=== PATIENT | male | born 1985 | race Caucasian/White ===

== ENCOUNTER 2020-08-31 23:53 | Emergency (ER) | payer MEDICAID, OTHER ==
[~2020-08-31] VITALS: Ht 182.9 cm; Wt 70.3 kg
--- NOTE | 2020-09-01 | NUR ---
MD Mcwilliams in room to do MSE.
[2020-09-01] MEDS ORDERED: DOXY100C2 PO (00:05)
[2020-09-01] MEDS ORDERED: CEFTRIAXONE 500 MG VIAL ONE (00:14)
[2020-09-01] MEDS ORDERED: LIDOCAINE HCL 1% 20 ML VIAL ONE (00:14)
[2020-09-01] MEDS ORDERED: CEFTRIAXONE 500 MG VIAL IM ONE (00:15)
[2020-09-01 00:25] VITALS: BP 110/62
--- NOTE | 2020-09-01 00:25 | NUR ---
Patient discharged to home in stable condition. Written and verbal after care instructions given. Patient verbalizes understanding of instructions. Stressed follow up or return to ER for worsening s/s. Patient ambulates with steady gait, V/S stable, received paper Rx, left with all personal belongings.
== END 2020-09-01 00:25 | disposition home or self-care (01) ==
LOC: ER 23:53
DX: R30.0 Dysuria (principal); R36.9 Urethral discharge, unspecified; Z20.6 Contact with and (suspected) exposure to human immunodeficiency virus [HIV]
CPT/HCPCS: 96372; 99283; J0696; J3490; A4663

== ENCOUNTER 2020-11-01 21:26 | Emergency (ER) | payer OTHER ==
[~2020-11-01] VITALS: Ht 185.4 cm; Wt 70.3 kg
[~2020-11-01 21:26] MED LIST: DOXY100C2 PO
[2020-11-01] MEDS ORDERED: DOXY-326 PO (21:54)
[2020-11-01] MEDS ORDERED: CEFTRIAXONE 500 MG VIAL IM ONE (22:00)
[2020-11-01] MEDS ORDERED: DOXYCYCLINE HYCLATE 100 MG TABLET PO ONE (22:00)
[2020-11-01] MEDS ORDERED: LIDOCAINE HCL 1% 20 ML VIAL ONE (22:15)
[2020-11-01] MEDS ORDERED: CEFTRIAXONE 500 MG VIAL ONE (22:16)
[2020-11-01] MEDS ORDERED: DOXYCYCLINE HYCLATE 100 MG TABLET ONE (22:16)
[2020-11-01 22:30] VITALS: BP 125/72
--- NOTE | 2020-11-01 22:30 | NUR ---
Patient discharged to home in stable condition. Written and verbal after care instructions given. Patient verbalizes understanding of instructions. Stressed follow up or return to ER for worsening s/s.
[2020-11-01 22:37] LABS: *BILIRUBIN,URIN NEGATIVE (NEGATIVE); *BLOOD, URINE 1+ (NEGATIVE); *CLARITY,URINE CLEAR (CLEAR); *COLOR,URINE YELLOW (YELLOW); *KETONES,URINE NEGATIVE (NEGATIVE); *UROBILINOGEN,URINE 0.2 E.U./dl (NORMAL); LEUKOCYTE ESTERASE ,URINE NEGATIVE (NEGATIVE); NITRITE, URINE NEGATIVE (NEGATIVE); PH,URINE 5.5 (5.0-8.0); UGLUCOSE NEGATIVE (NEGATIVE)
[2020-11-01 22:47] LABS: BACTERIA,URINE NONE SEEN /HPF (NONE SEEN); CALCIUM OXALATE CRYSTALS,UR MODERATE /HPF (NONE SEEN); MUCUS,URINE MODERATE /LPF (0-FEW); SQUAMOUS EPITHELIAL CELL,UR NONE SEEN /HPF (NONE SEEN); WBC,URINE 0-3 /HPF (0-3)
[2020-11-05 15:16] LABS: *GC NAA Negative; *TRIC.VAG. NAA Negative
== END 2020-11-01 22:33 | disposition home or self-care (01) ==
LOC: ER 21:28
DX: N34.2 Other urethritis (principal)
CPT/HCPCS: 87086; 87491; A4663; J0696; J3490

== ENCOUNTER 2020-12-11 06:11 | Emergency (ER) | payer OTHER ==
[~2020-12-11] VITALS: Ht 182.9 cm; Wt 70.3 kg
[~2020-12-11 06:11] MED LIST changes: +DOXY-326 PO; -DOXY100C2 PO; +DOXY100C5 PO
--- NOTE | 2020-12-11 06:53 | NUR ---
Dr. Ellis at bedside for [facility]. Pt states he has had diarrhea and abdominal pain for past 3 days since he returned from the [place].
[2020-12-11] MEDS ORDERED: IV NORMAL SALINE 1000 ML BAG IV ONE (07:00)
[2020-12-11] MEDS ORDERED: KETOROLAC TROMETHAMINE 30 MG INJ IVP ONE (07:00)
[2020-12-11 07:18] LABS: HEMATOCRIT 41.8 % (36.7-47.1); MEAN CORPUSCULAR HEMOGLOBIN 33.1 uug (23.8-33.4); MEAN CORPUSCULAR VOLUME 97.3 fL (73.0-96.2); PLATELET COUNT (AUTO) 129 K/uL (152-348)
[2020-12-11 07:21] LABS: CREATININE 1.1 mg/dL (0.6-1.3); POTASSIUM 4.9 mmol/L (3.5-5.1)
[2020-12-11 07:27] LABS: BILIRUBIN,DIRECT 0.1 mg/dL (0.0-0.2); BILIRUBIN,TOTAL 0.2 mg/dL (0.2-1.0)
[2020-12-11] MEDS ORDERED: KETOROLAC TROMETHAMINE 30 MG INJ ONE (07:53)
[2020-12-11] MEDS ORDERED: IV NS 1000 ML 1,000 ML IV ONE (09:00)
[2020-12-11] MEDS ORDERED: CIPROFLOXACIN HCL 250 MG TABLET PO ONE (09:15)
[2020-12-11] MEDS ORDERED: CIPR-262 PO (09:16)
[2020-12-11 09:27] LABS: *BILIRUBIN,URIN NEGATIVE (NEGATIVE); *BLOOD, URINE 2+ (NEGATIVE); *CLARITY,URINE CLEAR (CLEAR); *COLOR,URINE YELLOW (YELLOW); *KETONES,URINE NEGATIVE (NEGATIVE); *UROBILINOGEN,URINE 0.2 E.U./dl (NORMAL); LEUKOCYTE ESTERASE ,URINE NEGATIVE (NEGATIVE); NITRITE, URINE NEGATIVE (NEGATIVE); PH,URINE 6.5 (5.0-8.0); UGLUCOSE NEGATIVE (NEGATIVE)
[2020-12-11] MEDS ORDERED: CIPROFLOXACIN HCL 250 MG TABLET ONE (09:33)
--- NOTE | 2020-12-11 10:04 | NUR ---
IV removed. Catheter intact and site benign. Pressure and 4x4 gauze applied to site. No bleeding noted.
[2020-12-11 14:33] LABS: BACTERIA,URINE NONE SEEN /HPF (NONE SEEN); SQUAMOUS EPITHELIAL CELL,UR FEW /HPF (NONE SEEN); URINE AMORPHOUS URATE FEW /HPF
== END 2020-12-11 10:09 | disposition home or self-care (01) ==
LOC: ER 06:14
DX: R10.9 Unspecified abdominal pain (principal); R19.7 Diarrhea, unspecified; D69.6 Thrombocytopenia, unspecified
CPT/HCPCS: 36415; 80048; 80076; 81001; 83690; 85025; 96361; 96374; 99284; J1885; A4663; J7030

== ENCOUNTER 2021-10-19 10:51 | Emergency (ER) | payer OTHER ==
[~2021-10-19] VITALS: Ht 185.4 cm; Wt 70.3 kg
[~2021-10-19 10:51] MED LIST changes: +CIPR-262 PO
[2021-10-19] MEDS ORDERED: LIDOCAINE 1%-EPI 1:100,000 20 ML VIAL IJ ONE (11:15)
[2021-10-19] MEDS ORDERED: CEFTRIAXONE 500 MG VIAL IM ONE (11:15)
[2021-10-19] MEDS ORDERED: DOXY100C5 PO (11:22)
[2021-10-19] MEDS ORDERED: CEFTRIAXONE 500 MG VIAL ONE (11:23)
[2021-10-19] MEDS ORDERED: LIDOCAINE 1%-EPI 1:100,000 20 ML VIAL ONE (11:24)
--- NOTE | 2021-10-19 12:06 | NUR ---
PT WAS EVALUATED BY DR PERALTA. PT WAS D/C'd TO HOME. D/C INSTRUCTIONS GIVEN TO THE PT BY DR KAISER.
[2021-10-19 12:07] VITALS: BP 132/75
[2021-10-20 10:06] LABS: HEPATITIS B SURFACE AG Negative (Negative)
[2021-10-22 20:06] LABS: *GC NAA Positive (Negative); *TRIC.VAG. NAA Negative (Negative)
== END 2021-10-19 12:08 | disposition home or self-care (01) ==
LOC: ER 10:53
DX: N34.2 Other urethritis (principal); Z20.2 Contact with and (suspected) exposure to infections with a predominantly sexual mode of transmission; D84.9 Immunodeficiency, unspecified; Z72.51 High risk heterosexual behavior
CPT/HCPCS: 99283; 86592; 96372; 86803; 87340; 87491; J0696; J3490; 36415; A4663

== ENCOUNTER 2021-12-05 09:40 | Emergency (ER) | payer OTHER ==
[~2021-12-05] VITALS: Ht 185.4 cm; Wt 70.3 kg
[2021-12-05] MEDS ORDERED: CEFTRIAXONE 500 MG VIAL IM ONE (11:00)
[2021-12-05] MEDS ORDERED: DOXYCYCLINE HYCLATE 100 MG TABLET PO ONE (11:00)
[2021-12-05] MEDS ORDERED: DOXYCYCLINE HYCLATE 100 MG TABLET ONE (11:01)
[2021-12-05] MEDS ORDERED: CEFTRIAXONE 500 MG VIAL ONE (11:02)
[2021-12-05] MEDS ORDERED: LIDOCAINE HCL 1% 20 ML VIAL ONE (11:02)
--- NOTE | 2021-12-05 11:40 | NUR ---
Female park aide accompanied patient for ( Dr Hargrove ).
[2021-12-05] MEDS ORDERED: DOXY-326 PO (11:52)
[2021-12-05] MEDS ORDERED: ACYC400T19 PO (11:52)
[2021-12-05 12:17] VITALS: BP 114/72
[2021-12-06 23:06] LABS: *GC NAA Negative (Negative)
[2021-12-07 03:06] LABS: *TRIC.VAG. NAA Negative (Negative)
== END 2021-12-05 12:17 | disposition home or self-care (01) ==
LOC: ER 09:40
DX: A60.1 Herpesviral infection of perianal skin and rectum (principal); K62.89 Other specified diseases of anus and rectum
CPT/HCPCS: 99283; 86780; 36415; 96372; 87491; J0696; J3490; A4663

== ENCOUNTER 2022-05-12 04:07 | Emergency (ER) | payer OTHER ==
[~2022-05-12] VITALS: Ht 185.4 cm; Wt 83.9 kg
[~2022-05-12 04:07] MED LIST changes: +ACYC400T19 PO
--- NOTE | 2022-05-12 04:20 | NUR ---
Seen and being examined by Dr. Madrigal
[2022-05-12] MEDS ORDERED: CEFAZOLIN 1 G VIAL IM ONE (04:30)
[2022-05-12] MEDS ORDERED: CEFAZOLIN 1 G VIAL ONE (04:30)
[2022-05-12] MEDS ORDERED: SULF1TAB48 PO (04:33)
[2022-05-12] MEDS ORDERED: HYDR-3972 PO (04:33)
[2022-05-12] MEDS ORDERED: AZIT250T13 PO (04:33)
[2022-05-12 04:40] VITALS: BP 112/80
== END 2022-05-12 04:46 | disposition home or self-care (01) ==
LOC: ER 04:08
DX: L03.317 Cellulitis of buttock (principal)
CPT/HCPCS: 99283; 96372; J0690; A4663

== ENCOUNTER 2022-06-18 09:36 | Emergency (ER) | payer OTHER ==
[~2022-06-18] VITALS: Ht 185.4 cm; Wt 74.8 kg
[~2022-06-18 09:36] MED LIST changes: +AZIT250T13 PO; +HYDR-3972 PO; +SULF1TAB48 PO
--- NOTE | 2022-06-18 09:50 | NUR ---
PT IS IN ROOM #2A. DR BLACKWOOD EVALUATED THE PT .
[2022-06-18] MEDS ORDERED: CEFTRIAXONE 500 MG VIAL IM ONE (10:00)
[2022-06-18] MEDS ORDERED: PENICILLIN G BENZATHINE 2.4 MMU/4 ML DISP.SYRIN IM ONE ×2 (10:00→10:16)
[2022-06-18] MEDS ORDERED: DOXY100C5 PO (10:05)
[2022-06-18] MEDS ORDERED: CEFTRIAXONE 500 MG VIAL ONE (10:16)
[2022-06-18] MEDS ORDERED: LIDOCAINE HCL 2% 20 ML VIAL ONE (10:17)
== END 2022-06-18 10:29 | disposition home or self-care (01) ==
LOC: ER 09:37
DX: A64 Unspecified sexually transmitted disease (principal)
CPT/HCPCS: 99284; 86592; 87591; 96372 ×2; J0561; J0696; J3490; A4663

== ENCOUNTER 2022-12-04 13:32 | Emergency (ER) | payer OTHER ==
[~2022-12-04] VITALS: Ht 185.4 cm; Wt 74.8 kg
[2022-12-04] MEDS ORDERED: CEFTRIAXONE 500 MG VIAL IM ONE (15:15)
[2022-12-04] MEDS ORDERED: LIDOCAINE HCL 1% 20 ML VIAL ONE (15:15)
[2022-12-04] MEDS ORDERED: CEFTRIAXONE 500 MG VIAL ONE (15:16)
[2022-12-04] MEDS ORDERED: DOXY100C5 PO (15:22)
[2022-12-04 15:28] VITALS: BP 111/63; O2SAT 96
== END 2022-12-04 15:29 | disposition home or self-care (01) ==
LOC: ER 13:35
DX: A64 Unspecified sexually transmitted disease (principal); Z79.2 Long term (current) use of antibiotics; Z79.899 Other long term (current) drug therapy
CPT/HCPCS: 99283; 96372; J0696; J3490; A4663

== ENCOUNTER 2024-06-29 09:19 | Emergency (ER) | payer OTHER ==
[2024-06-29] MEDS ORDERED: SULF1TAB48 PO (19:17)
[2024-06-29] MEDS ORDERED: ONDA4TAB11 PO (19:17)
[2024-06-29] MEDS ORDERED: HYDR-3980 PO (19:17)
[2024-06-29] MEDS ORDERED: CEPH500T PO (19:17)
== END 2024-06-29 09:58 | disposition left against medical advice (07) ==
LOC: ER 09:19
DX: R22.0 Localized swelling, mass and lump, head (principal); Z53.21 Procedure and treatment not carried out due to patient leaving prior to being seen by health care provider

== ENCOUNTER 2024-06-29 18:25 | Emergency (ER) | payer OTHER ==
[~2024-06-29] VITALS: Ht 182.9 cm; Wt 64.9 kg
[2024-06-29] MEDS ORDERED: CEPH500T PO (19:17)
[2024-06-29] MEDS ORDERED: HYDR-3980 PO (19:17)
[2024-06-29] MEDS ORDERED: ONDA4TAB11 PO (19:17)
[2024-06-29] MEDS ORDERED: SULF1TAB48 PO (19:17)
[2024-06-29] MEDS ORDERED: CEFTRIAXONE 1 G VIAL ONE (19:22)
[2024-06-29] MEDS ORDERED: ONDANSETRON ODT 4 MG TAB.RAPDIS ONE (19:22)
[2024-06-29] MEDS ORDERED: HYDROMORPHONE 2 MG/1 ML DISP.SYRIN ONE (19:23)
[2024-06-29] MEDS ORDERED: SULFAMETH/TRIMETH 800/160 MG TABLET ONE (19:23)
[2024-06-29] MEDS: CEFTRIAXONE 1 G VIAL IM ONE (19:33)
[2024-06-29] MEDS ORDERED: LIDOCAINE HCL 1% 20 ML VIAL ONE (19:34)
[2024-06-29] MEDS: SULFAMETH/TRIMETH 800/160 MG TABLET PO ONE (19:49)
[2024-06-29] MEDS: ONDANSETRON ODT 4 MG TAB.RAPDIS SL ONE (19:49)
[2024-06-29] MEDS: HYDROMORPHONE 1 MG/1 ML DISP.SYRIN IM ONE (19:49)
[2024-06-29 19:57] VITALS: BP 115/68; TEMP 98.1; O2SAT 99
== END 2024-06-29 19:49 | disposition home or self-care (01) ==
LOC: ER 18:25
DX: L03.211 Cellulitis of face (principal); L01.00 Impetigo, unspecified; F12.90 Cannabis use, unspecified, uncomplicated; Z60.2 Problems related to living alone
CPT/HCPCS: 99284; 96372; J1171; J0696; J3490; A4606; A4663; Q0162